=== PATIENT | female | born 1935 | race Caucasian/White ===

== ENCOUNTER 2016-11-20 07:29 | Emergency (ER) | payer OTHER ==
[~2016-11-20] VITALS: Ht 162.6 cm; Wt 68.0 kg
[2016-11-20 08:15] LABS: Basophils # (auto) 0 uL; Basophils % (auto) 0.1 % (0.0-2.0); Eosinophils # (auto) 0.1 uL; Eosinophils % (auto) 0.8 % (0.0-7.0); Hematocrit 41.1 % (36.0-46.0); Hemoglobin 13.6 g/dL (12.2-16.2); Lymphocytes # (auto) 0.6 uL; Lymphocytes % (auto) 8.1 % (10.0-50.0); Mean Corpuscular Hemoglobin 31.7 pg (28.0-32.0); Mean Corpuscular Volume 96.1 fL (80.0-100.0); Mean Platelet Volume 7.6 fL (7.4-10.4); Monocytes # (auto) 0.4 uL; Monocytes % (auto) 5.3 % (0.0-12.0); Neutrophils # (auto) 6.1 uL; Neutrophils % (auto) 85.7 % (37.0-80.0); Platelet Count (auto) 267 10^3/uL (140-450); Red Cell Distribution Width 14.7 % (11.6-16.0); White Blood Cell 7.1 10^3/uL (4.4-10.8)
[2016-11-20 08:31] LABS: Prothrombin Time 70.2 sec (9.37-12.3)
[2016-11-20 08:38] LABS: INR 6.5 (0.9-1.15)
[2016-11-20 08:39] LABS: Albumin 3.5 g/dL (3.4-5.0); Alkaline Phosphatase 115 U/L (45-117); Anion Gap 8 (5-15); Aspartate Aminotransferase 33 U/L (15-37); Bilirubin, Total 0.8 mg/dL (0.2-1.0); Blood Urea Nitrogen 26 mg/dL (7-18); Calcium 9.8 mg/dL (8.5-10.1); Carbon Dioxide 23 mmol/L (21-32); Chloride 110 mmol/L (98-107); GFR African American 65 mL/min; GFR Non-African American 54 mL/min; Glucose 100 mg/dL (74-106); Sodium 141 mmol/L (136-145); Total Protein 7.7 g/dL (6.4-8.2)
[2016-11-20 13:48] VITALS: BP 128/76
== END 2016-11-20 14:09 | disposition short-term general hospital (02) ==
LOC: EDBD 07:29 → ER 07:29 → EDUNIT# 07:29 → ER 14:09
DX: S41.011A Laceration without foreign body of right shoulder, initial encounter (principal); S00.83XA Contusion of other part of head, initial encounter; S40.811A Abrasion of right upper arm, initial encounter; I48.91 Unspecified atrial fibrillation; N18.9 Chronic kidney disease, unspecified; W19.XXXA Unspecified fall, initial encounter; Y93.01 Activity, walking, marching and hiking; Y99.8 Other external cause status; Y92.091 Bathroom in other non-institutional residence as the place of occurrence of the external cause; Z87.440 Personal history of urinary (tract) infections; Z88.6 Allergy status to analgesic agent; Z88.2 Allergy status to sulfonamides; Z88.8 Allergy status to other drugs, medicaments and biological substances
CPT/HCPCS: 36415; 70450; 70486; 71010; 72100; 72125; 80053; 83735; 84484; 85025; 85610; 93005